=== PATIENT | female | born 1995 ===

== ENCOUNTER 2016-10-19 16:09 | Emergency (ER) | payer OTHER ==
[2016-10-19 16:18] VITALS: BP 116/62; PULSE 93; RESP 20; TEMP 98.7; O2SAT 100
[2016-10-19] MEDS ORDERED: Sodium Chloride 0.9% 1,000 ML IV STA (16:43)
--- NOTE | 2016-10-19 17:04 | ED PDOC ---
HPI: Abdomen Time Seen by Provider: 10/19/16 16:33 Chief Complaint (Nursing): GI Problem Chief Complaint (Provider): Abdominal pain History Per: Patient History/Exam Limitations: no limitations Onset/Duration Of Symptoms: Days (x3 days ) Current Symptoms Are (Timing): Still Present Additional Complaint(s): 21 y/o female presents to the emergency department with a complaint of a left- sided abdominal pain x3 days. Associated with nausea which began yesterday and constipation x1 week. Reports using Fleets Enema without the relief of symptoms. Denies urinary frequency and vaginal discharge. Past Medical History Reviewed: Historical Data, Nursing Documentation, Vital Signs Vital Signs: Last Vital Signs Temp 98.7 F 10/19/16 16:16 Pulse 93 H 10/19/16 16:16 Resp 20 10/19/16 16:16 BP 116/62 10/19/16 16:16 Pulse Ox 100 10/19/16 17:08 - Medical History PMH: Gastritis Denies: Chronic Kidney Disease - Surgical History Surgical History: Cholecystectomy - Family History Family History: States: Unknown Family Hx - Home Medications Home Medications: Ambulatory Orders Medication Instructions Recorded Omeprazole [Omeprazole] 40 mg PO DAILY 09/30/15 Ciprofloxacin [Cipro] 250 mg PO BID #6 tab 01/29/16 Cyclobenzaprine [Cyclobenzaprine 10 mg PO BID #14 tab 01/29/16 HCl] Ibuprofen [Motrin] 400 mg PO Q6 #30 tab 01/29/16 - Allergies Allergies/Adverse Reactions: Allergies Allergy/AdvReac Type Severity Reaction Status Date / Time No Known Allergies Allergy Verified 01/29/16 14:50 Review of Systems ROS Statement: Except As Marked, All Systems Reviewed And Found Negative Gastrointestinal: Positive for: Nausea, Abdominal Pain (Left-sided), Constipation Genitourinary Female: Negative for: Frequency, Vaginal Discharge Physical Exam - Reviewed Nursing Documentation Reviewed: Yes Vital Signs Reviewed: Yes - Physical Exam Appears: Positive for: Non-toxic, No Acute Distress Head Exam: Positive for: ATRAUMATIC, NORMAL INSPECTION, NORMOCEPHALIC Skin: Positive for: Normal Color, Warm, Dry Neck: Positive for: Normal, Supple Cardiovascular/Chest: Positive for: Regular Rate, Rhythm. Negative for: Murmur Respiratory: Positive for: Normal Breath Sounds. Negative for: Accessory Muscle Use, Respiratory Distress Gastrointestinal/Abdominal: Positive for: Soft, Tenderness (Tenderness of the left upper and lower quadrant as well as flank region tenderness noted. Minimal tenderness of the RLQ noted. ). Negative for: Normal Exam Neurologic/Psych: Positive for: Alert, Oriented (x3) - Laboratory Results Result Diagrams: 10/19/16 17:04 10/19/16 17:04 - ECG O2 Sat by Pulse Oximetry: 100 (RA) Pulse Ox Interpretation: Normal Medical Decision Making Medical Decision Making: Time: 16:33 Initial impression: Initial plan: --Abd & pelvis CT --CMP --Lipase --Urine DIP & Urine Preg --CBC w/ diff --Toradol 15 mg IVP --Sodium Chloride 500 mls/hr IV --Urine Culture --Urinalysis --Reevaluation Time: 16:45 --Urine DIP & Preg: Negative --Pending CT for evaluation of kidney stones. Scribe Attestation: Documented by Kourtney Thao, acting as a scribe for Rivka Rodriguez PA-C. Provider Scribe Attestation: All medical record entries made by the Scribe were at my direction and personally dictated by me. I have reviewed the chart and agree that the record accurately reflects my personal performance of the history, physical exam, medical decision making, and the department course for this patient. I have also personally directed, reviewed, and agree with the discharge instructions and disposition. Disposition - Clinical Impression Clinical Impression: Abdominal pain - Patient ED Disposition Is Patient to be Admitted: Transfer of Care - Disposition Disposition: Transfer of Care Disposition Time: 18:53 Condition: FAIR Forms: [employer] (Italian) Patient Signed Over To: Bridgette Flower Handoff Comments: PENDING CT/RE-EVAL
[2016-10-19 17:05] LABS: RBC URINE 3 /hpf (0-3); URINE BACTERIA MOD (<OCC); URINE BILIRUBIN NEGATIVE (NEGATIVE); URINE BLOOD NEGATIVE (NEGATIVE); URINE COLOR YELLOW (YELLOW); URINE GLUCOSE (UA) NEG (Normal); URINE KETONE NEGATIVE (NEGATIVE); URINE LEUKOCYTE ESTERASE NEG Leu/uL (Negative); URINE PROTEIN NEGATIVE (NEGATIVE); URINE UROBILINOGEN 0.2-1.0 mg/dL (0.2-1.0); WBC URINE 1 /hpf (0-5)
[2016-10-19 17:11] LABS: BASO % 0.7 % (0.0-2.0); EOS # 0.1 K/uL (0.0-0.7); EOS % 1.6 % (0.0-4.0); HEMATOCRIT 29.1 % (34.0-47.0); LYMPH # 2.2 K/uL (1.0-4.3); LYMPH % 37.4 % (20.0-40.0); MEAN CORPUSCULAR HEMOGLOBIN 25.5 pg (27.0-31.0); MEAN CORPUSCULAR HGB CONC 32.9 g/dL (33.0-37.0); MEAN PLATELET VOLUME 9.9 fl (7.2-11.7); MONO # 0.4 K/uL (0.0-0.8); NEUT # 3.1 K/uL (1.8-7.0); NEUT % 53.3 % (50.0-75.0); NRBC % 0.1 % (0.0-0.0); RED CELL DISTRIBUTION WIDTH 15.7 % (11.5-14.5); WHITE BLOOD COUNT 5.9 K/uL (4.8-10.8)
[2016-10-19 17:15] LABS: MEAN CELL VOLUME 77.4 fl (81.0-99.0)
[2016-10-19 17:26] LABS: ALB/GLOB RATIO 1.3 (1.0-2.1); ALKALINE PHOSPHATASE 55 U/L (38-126); ALT/SGPT 31 U/L (9-52); AST/SGOT 25 U/L (14-36); BILIRUBIN,TOTAL 0.8 mg/dl (0.2-1.3); BLOOD UREA NITROGEN 11 mg/dl (7-17); CALCIUM 8.8 mg/dL (8.4-10.2); CARBON DIOXIDE 25 mmol/L (22-30); CHLORIDE 106 mmol/L (98-107); GFR AFRICAN-AMERICAN > 60; GLUCOSE,RANDOM 96 mg/dL (65-105); LIPASE 137 U/L (23-300); POTASSIUM 3.4 MMOL/L (3.6-5.0); SODIUM 140 mmol/l (132-148); TOTAL PROTEIN 6.9 G/DL (6.3-8.2)
--- NOTE | 2016-10-19 20:06 | CT ---
EXAM: CT Abdomen and Pelvis Without Intravenous Contrast EXAM DATE/TIME: 10/19/2016 4:46 PM CLINICAL HISTORY: 21 years old, female; Pain; Abdominal pain; Flank; Left lower quadrant (llq); Additional info: R/O kidney stone luq/llq pain TECHNIQUE: Axial computed tomography images of the abdomen and pelvis without intravenous contrast. All CT scans at this facility use one or more dose reduction techniques, viz.: automated exposure control; ma/kV adjustment per patient size (including targeted exams where dose is matched to indication; i.e. head); or iterative reconstruction technique. Coronal and sagittal reformatted images were created and reviewed. COMPARISON: CR - ABD 2 VIEWS (FLAT/UP OR DECUB) 05/03/2015 4:04:07 PM FINDINGS: Lower thorax: Heart size is normal. There is minimal scarring at the lung bases ABDOMEN: Liver: unremarkable Gallbladder and bile ducts: Gallbladder is surgically absent. Common duct is unremarkable. Pancreas: unremarkable Spleen: unremarkable Adrenals: unremarkable Kidneys and ureters: unremarkable Stomach and bowel: Stomach is distended with ingested material. Rotation is normal. There is no obstruction. Ileocecal region is unremarkable. Appendix and terminal ileum are unremarkable.There is moderate stool in the colon. Appendix: See stomach and bowel PELVIS: Bladder: unremarkable Reproductive: Uterus and adnexal structures are unremarkable. ABDOMEN and PELVIS: Intraperitoneal space: There is trace free fluid in the pelvis. There is no free air. Bones/joints: There is L5 spondylolysis. There is minimal spondylolisthesis L5 on S1. There is L5-S1 disc bulging. There is mild L4-L5 disc bulging. Soft tissues: There is a small fat containing umbilical hernia. Vasculature: Vascular structures are unremarkable. Lymph nodes: There is shotty adenopathy. IMPRESSION: No renal or ureteral stones or hydronephrosis; cholecystectomy; possible constipation; no CT findings of appendicitis or diverticulitis; free fluid in the pelvis, physiologic versus recent cyst rupture Additional findings as described above.
--- NOTE | 2016-10-19 20:17 | ED PDOC ---
- Laboratory Results Result Diagrams: 10/19/16 17:04 10/19/16 17:04 - ECG O2 Sat by Pulse Oximetry: 100 (RA) - Progress ED Course And Treament: Case endorsed to technical document writer from Michael THORPE pending CT EXAM: CT Abdomen and Pelvis Without Intravenous Contrast EXAM DATE/TIME: 10/19/2016 4:46 PM CLINICAL HISTORY: 21 years old, female; Pain; Abdominal pain; Flank; Left lower quadrant (llq); Additional info: R/O kidney stone luq/llq pain TECHNIQUE: Axial computed tomography images of the abdomen and pelvis without intravenous contrast. All CT scans at this facility use one or more dose reduction techniques, viz.: automated exposure control; ma/kV adjustment per patient size (including targeted exams where dose is matched to indication; i.e. head); or iterative reconstruction technique. Coronal and sagittal reformatted images were created and reviewed. COMPARISON: CR - ABD 2 VIEWS (FLAT/UP OR DECUB) 05/03/2015 4:04:07 PM FINDINGS: Lower thorax: Heart size is normal. There is minimal scarring at the lung bases ABDOMEN: Liver: unremarkable Gallbladder and bile ducts: Gallbladder is surgically absent. Common duct is unremarkable. Pancreas: unremarkable Spleen: unremarkable Adrenals: unremarkable Kidneys and ureters: unremarkable Stomach and bowel: Stomach is distended with ingested material. Rotation is normal. There is no obstruction. Ileocecal region is unremarkable. Appendix and terminal ileum are unremarkable.There is moderate stool in the colon. Appendix: See stomach and bowel PELVIS: Bladder: unremarkable Reproductive: Uterus and adnexal structures are unremarkable ABDOMEN and PELVIS: Intraperitoneal space: There is trace free fluid in the pelvis. There is no free air. Bones/joints: There is L5 spondylolysis. There is minimal spondylolisthesis L5 on S1. There is L5-S1 disc bulging. There is mild L4-L5 disc bulging. Soft tissues: There is a small fat containing umbilical hernia. Vasculature: Vascular structures are unremarkable. Lymph nodes: There is shotty adenopathy. IMPRESSION: No renal or ureteral stones or hydronephrosis; cholecystectomy; possible constipation; no CT findings of appendicitis or diverticulitis; free fluid in the pelvis, physiologic versus recent cyst rupture Additional findings as described above On re-eval, patient resting comfortably, states pain resolved. Patient educated on findings, discharged with instructions to follow up PMD 2-3 days. Patient aware of anemia. Will follow with PMD Return to ED for worsening/concerning symptoms. Disposition - Clinical Impression Clinical Impression: Abdominal pain, Anemia - POA Present On Arrival: None - Disposition Disposition: Routine/Home Disposition Time: 20:36 Condition: IMPROVED Instructions: Abdominal Pain (ED), Anemia (ED)
== END 2016-10-19 20:55 | disposition home or self-care (01) ==
LOC: H.ER 16:09
DX: R10.9 Unspecified abdominal pain (principal); D64.9 Anemia, unspecified; Z90.49 Acquired absence of other specified parts of digestive tract
CPT/HCPCS: 74176; 80053; 81003; 83690; 85025; 87086; 96361; 96374; 99283; J1885; J7040

== ENCOUNTER 2018-03-15 18:35 | Emergency (ER) | payer OTHER ==
[2018-03-15 19:16] VITALS: RESP 16
[2018-03-15] MEDS ORDERED: Sodium Chloride 0.9% 1,000 ML IV STA (19:51)
[2018-03-15 20:30] LABS: BASO % 0.6 % (0.0-2.0); EOS # 0.1 K/uL (0.0-0.7); EOS % 2.2 % (0.0-4.0); HEMOGLOBIN 10.6 g/dL (12.0-16.0); LYMPH # 2.4 K/uL (1.0-4.3); LYMPH % 45.6 % (20.0-40.0); MEAN CELL VOLUME 80.5 fl (81.0-99.0); MEAN CORPUSCULAR HEMOGLOBIN 26.4 pg (27.0-31.0); MEAN CORPUSCULAR HGB CONC 32.8 g/dL (33.0-37.0); MEAN PLATELET VOLUME 9.3 fl (7.2-11.7); MONO # 0.3 K/uL (0.0-0.8); MONO % 5.8 % (0.0-10.0); NEUT # 2.4 K/uL (1.8-7.0); NEUT % 45.8 % (50.0-75.0); RBC 4.01 Mil/uL (3.80-5.20); RED CELL DISTRIBUTION WIDTH 14.6 % (11.5-14.5); WHITE BLOOD COUNT 5.3 K/uL (4.8-10.8)
[2018-03-15 20:34] LABS: SQUAMOUS EPITHIAL < 1 /hpf (0-5); URINE BACTERIA RARE (<OCC); URINE BILIRUBIN NEGATIVE (NEGATIVE); URINE BLOOD MODERATE (NEGATIVE); URINE CLARITY CLEAR (Clear); URINE COLOR AMBER (YELLOW); URINE GLUCOSE (UA) NEG (NEGATIVE); URINE LEUKOCYTE ESTERASE NEG Leu/uL (Negative); URINE PROTEIN NEGATIVE (NEGATIVE)
[2018-03-15 20:37] LABS: URINE UROBILINOGEN 0.2 mg/dL (0.2-1.0)
[2018-03-15 20:38] LABS: ALB/GLOB RATIO 1.2 (1.0-2.1); ALBUMIN 4.3 g/dL (3.5-5.0); ALT/SGPT 58 U/L (9-52); AST/SGOT 47 U/L (14-36); BLOOD UREA NITROGEN 16 mg/dl (7-17); CALCIUM 9.1 mg/dL (8.4-10.2); GFR NON-AFRICAN AMERICAN > 60; LIPASE 1816 U/L (23-300)
--- NOTE | 2018-03-15 20:41 | ED PDOC ---
HPI: Abdomen Time Seen by Provider: 03/15/18 19:15 Chief Complaint (Nursing): Abdominal Pain Chief Complaint (Provider): Abdominal Pain History Per: Patient History/Exam Limitations: no limitations Onset/Duration Of Symptoms: Days (x2) Current Symptoms Are (Timing): Still Present Context: Travel (returned from [place] on 03/13/2018) Additional Complaint(s): Patient is a 23 y/o female with a PMHx of gastritis who presents to the ED for evaluation of epigastric and left flank abdominal pain, onset 03/13/2018. Patient admits to nausea. Patient denies fever, vomiting, diarrhea, and urinary symptoms. Of note, patient states she was treated in [place] on 03/07/2018 for a stomach virus. PCP: Dr. Monte Past Medical History Reviewed: Historical Data, Nursing Documentation, Vital Signs Vital Signs: Last Vital Signs Temp 98.1 F 03/15/18 19:13 Pulse 85 03/15/18 19:13 Resp 16 03/15/18 19:13 BP 112/70 03/15/18 19:13 Pulse Ox 100 03/15/18 19:13 - Medical History PMH: Gastritis Denies: Chronic Kidney Disease - Surgical History Surgical History: Cholecystectomy - Family History Family History: States: Unknown Family Hx - Social History Current smoker - smoking cessation education provided: No Ex-Smoker (has not smoked in the last 12 months): No Alcohol: None Drugs: Denies - Home Medications Home Medications: Ambulatory Orders Medication Instructions Recorded Omeprazole 40 mg PO DAILY 09/30/15 Ciprofloxacin [Cipro] 250 mg PO BID #6 tab 01/29/16 Cyclobenzaprine [Cyclobenzaprine 10 mg PO BID #14 tab 01/29/16 HCl] Ibuprofen [Motrin] 400 mg PO Q6 #30 tab 01/29/16 Ciprofloxacin HCl [Cipro] 500 mg PO BID #20 tab 03/16/18 Famotidine [Pepcid] 20 mg PO DAILY PRN #10 tab 03/16/18 - Allergies Allergies/Adverse Reactions: Allergies Allergy/AdvReac Type Severity Reaction Status Date / Time No Known Allergies Allergy Verified 03/15/18 19:13 Review of Systems ROS Statement: Except As Marked, All Systems Reviewed And Found Negative Constitutional: Negative for: Fever Gastrointestinal: Positive for: Nausea, Abdominal Pain (epigastric and left flank). Negative for: Vomiting, Diarrhea Genitourinary Female: Negative for: Dysuria, Hematuria Physical Exam - Reviewed Nursing Documentation Reviewed: Yes Vital Signs Reviewed: Yes - Physical Exam Appears: Positive for: No Acute Distress Head Exam: Positive for: ATRAUMATIC, NORMAL INSPECTION, NORMOCEPHALIC Skin: Positive for: Normal Color, Warm, DRY Eye Exam: Positive for: EOMI, Normal appearance, PERRL ENT: Positive for: Normal ENT Inspection Neck: Positive for: Normal Cardiovascular/Chest: Positive for: Regular Rate, Rhythm. Negative for: Murmur Respiratory: Positive for: Normal Breath Sounds Gastrointestinal/Abdominal: Positive for: Normal Exam, Soft, Tenderness (LUQ and mid-epigastric) Extremity: Positive for: Normal ROM (Upper/lower) Neurologic/Psych: Positive for: Alert, Oriented - Laboratory Results Result Diagrams: 03/15/18 20:05 03/15/18 20:05 Lab Results: Total Bilirubin 0.3 mg/dl (0.2-1.3) 03/15/18 20:05 AST 47 U/L (14-36) H 03/15/18 20:05 ALT 58 U/L (9-52) H D 03/15/18 20:05 Alkaline Phosphatase 81 U/L (38-126) 03/15/18 20:05 Total Protein 7.9 G/DL (6.3-8.2) 03/15/18 20:05 Albumin 4.3 g/dL (3.5-5.0) 03/15/18 20:05 Globulin 3.6 gm/dL (2.2-3.9) 03/15/18 20:05 Albumin/Globulin Ratio 1.2 (1.0-2.1) 03/15/18 20:05 Lipase 1816 U/L (23-300) H 03/15/18 20:05 Urine Color [place] (YELLOW) 03/15/18 20:05 Urine Clarity Clear (Clear) 03/15/18 20:05 Urine pH 6.0 (5.0-8.0) 03/15/18 20:05 Ur Specific [place] 1.017 (1.003-1.030) 03/15/18 20:05 Urine Protein Negative mg/dL (NEGATIVE) 03/15/18 20:05 Urine Glucose (UA) Neg mg/dL (NEGATIVE) 03/15/18 20:05 Urine Ketones Negative mg/dL (NEGATIVE) 03/15/18 20:05 Urine Blood Moderate (NEGATIVE) 03/15/18 20:05 Urine Nitrate Positive (NEGATIVE) H 03/15/18 20:05 Urine Bilirubin Negative (NEGATIVE) 03/15/18 20:05 Urine Urobilinogen 0.2 mg/dL (0.2-1.0) 03/15/18 20:05 Ur Leukocyte Esterase Neg [place]/uL (Negative) 03/15/18 20:05 Urine RBC (Auto) 97 /hpf (0-3) H 03/15/18 20:05 Urine Microscopic WBC 6 /hpf (0-5) H 03/15/18 20:05 Ur Squamous Epith Cells < 1 /hpf (0-5) 03/15/18 20:05 Urine Bacteria Rare (<OCC) 03/15/18 20:05 - ECG O2 Sat by Pulse Oximetry: 100 (RA) Pulse Ox Interpretation: Normal Medical Decision Making Medical Decision Making: Time: 1950 abdominal pain rule out infection, inflammation, uti Plan: CMP Lipase CBC (with differential) IV Fluids Pepcid 20 mg IVP Zofran Inj 4 mg IV Urine C&S UA Time: 2151 [address]. Will do CT Abd scan. 01:34 CT COMPARISON: 10/19/2016. TECHNIQUE: Multiple axial and coronal CT images were obtained through the abdomen and pelvis after administration of intravenous contrast material. COMMENTS: The liver is of uniform attenuation without mass or defect. There is no intra or extrahepatic biliary ductal dilatation. The spleen is normal. The gallbladder is surgically absent. The pancreas is of normal contour and attenuation characteristics. There is no evidence of adrenal mass. Both kidneys demonstrate prompt and equal nephrograms. The kidneys are normal in size, shape and configuration. There is no evidence of renal or ureteral mass. No renal or ureteral calculi are identified. There is no hydroureter or hydronephrosis. No evidence for appendicitis. There is no bowel wall thickening. No evidence for small or large bowel obstruction. There is no evidence of abdominal ascites or lymphadenopathy. There is no evidence of intrinsic or extrinsic bladder mass. There is no pelvic ascites or lymphadenopathy. Diffuse thickening of the bladder. Images of the lung bases show no evidence of pleural or parenchymal mass. There are no pleural effusions. The bony structures are free of lytic or blastic lesions. IMPRESSION: Diffuse thickening of the bladder. Cystitis. Unremarkable pancreas. 01:50 Patient will be treated for elevated LFTs, anemia and a UTI. Given first dose of Cipro in the ED. everythign explained to patient. she feels better, tolerated po, pain resolved. Will be discharged home with prescriptions for Cipro and Pepcid. Return precautions provided. Follow up with PMD. Scribe Attestation: Documented by Haseeb Parker, acting as a scribe for provider Nayan Silveira MD. All medical record entries made by the Scribe were at my direction and personally dictated by me. I have reviewed the chart and agree that the record accurately reflects my personal performance of the history, physical exam, medical decision making, and the department course for this patient. I have also personally directed, reviewed, and agree with the discharge instructions and disposition. Disposition - Clinical Impression Clinical Impression: Abdominal pain in female, Gastritis, UTI (urinary tract infection), Elevated LFTs - Patient ED Disposition Is Patient to be Admitted: No Counseled Patient/Family Regarding: Studies Performed, Diagnosis, Need For Followup - Disposition Disposition: Routine/Home Disposition Time: 01:50 Condition: IMPROVED Additional Instructions: follow up with your primary doctor Dr Londono in 1-2 days return to the ED with any worsening or concerning symptoms Prescriptions: Ciprofloxacin HCl [Cipro] 500 mg PO BID #20 tab Famotidine [Pepcid] 20 mg PO DAILY PRN #10 tab PRN Reason: Heartburn Instructions: Urinary Tract Infection, Adult (DC), Stomach Ache and Stomach Upset Forms: [email or web address] (Ukrainian)
[2018-03-15] MEDS ORDERED: Iohexol 240 (50 ml) PO ONE (21:51)
[2018-03-15] MEDS ORDERED: Iohexol 240 (50 ml) ONE (21:57)
[2018-03-15] MEDS ORDERED: Sodium Chloride 0.9% 50 ML IV ONE (23:24)
[2018-03-15] MEDS ORDERED: Iohexol 300 100 ML IJ ONE (23:24)
[2018-03-16 02:25] VITALS: BP 119/69; PULSE 77; TEMP 98.2
[2018-03-16 04:40] VITALS: O2SAT 100
--- NOTE | 2018-03-16 11:24 | CT ---
Date of service: 03/15/2018 PROCEDURE: CT Abdomen and Pelvis with contrast HISTORY: abdominal pain elevated lipase COMPARISON: 10/19/2016and 09/30/2015 CT abdomen and pelvic exams TECHNIQUE: Contrast dose: 90 mL Omnipaque 300 Radiation dose: Total exam DLP = 549.72 mGy-cm. This CT exam was performed using one or more of the following dose reduction techniques: Automated exposure control, adjustment of the mA and/or kV according to patient size, and/or use of iterative reconstruction technique. FINDINGS: LOWER THORAX: Unremarkable. LIVER: Bordering the falciform ligament the anterior subcapsular appearing 2.5 x 1.3 cm hypodensity series 2, image 25 is stable in appearance dating back to 2015. Although the precise etiology of it is unclear its stability supports benign etiology. Its Hounsfield units are greater than that of a simple cyst. Greater focal fatty deposition is 1 consideration. Elsewhere generalized mild hepatic infiltration is believed also present. No intrahepatic bile duct dilatation noted. GALLBLADDER AND BILE DUCTS: Status post cholecystectomy. No extrahepatic stones noted. No suspect the bile duct dilatation noted. PANCREAS: Remarkable in appearance. No gross lesion or ductal dilatation. SPLEEN: Unremarkable. ADRENALS: Unremarkable. No mass. KIDNEYS AND URETERS: Unremarkable. No hydronephrosis. No solid mass. VASCULATURE: Unremarkable. No aortic aneurysm. No aortic atherosclerotic calcification or mural plaque present. BOWEL: Moderate stool retention. Rectosigmoid redundancy noted.. No obstruction. No gross mural thickening. APPENDIX: Normal appendix. PERITONEUM: Unremarkable. No free fluid. No free air. LYMPH NODES: Unremarkable. No enlarged lymph nodes. BLADDER: The bladder wall appears minimally and diffusely thickened. Of note is that this minimally diffusely thickened bladder wall appearance is a stable finding in this patient dating back to 2015. Correlate clinically REPRODUCTIVE: Unremarkable. BONES: Incidentally noted is bilateral L5 spondylolysis with a grade 1 spondylolisthesis OTHER FINDINGS: None. IMPRESSION: The circumscribed singular subcapsular appearing hypodense liver lesion is stable in appearance since 2016 supporting benign etiology. Some considerations are referenced above. A background of mild diffuse hepatic steatosis is also noted. Status post cholecystectomy. No interval dilated ducts seen. Unremarkable appearing pancreas in this patient with abdominal pain and elevated lipase. Clinical correlation and follow-up recommended. The bladder wall appears minimally and diffusely thickened. Of note is that this minimally diffusely thickened bladder wall appearance is a stable finding in this patient dating back to 2016. Correlate clinically The preliminary report offered by [facility] did not mention the liver findings as referenced above hence in this regard the current final report is discordant with the preliminary report. However this liver finding is stable since 2016 compatible with benign etiology.
== END 2018-03-16 02:20 | disposition home or self-care (01) ==
LOC: H.ER 18:35
DX: R10.13 Epigastric pain (principal); K29.70 Gastritis, unspecified, without bleeding; N39.0 Urinary tract infection, site not specified; R94.5 Abnormal results of liver function studies; D64.9 Anemia, unspecified
CPT/HCPCS: 74177; 80053; 81003; 81025; 83690; 85025; 87086; 96361; 96374; 96375; 99284; J2405; J7030; Q9966; Q9967

== ENCOUNTER 2018-04-24 12:39 | Emergency (ER) | payer OTHER ==
[2018-04-24] MEDS ORDERED: Tdap Vaccine 0.5 ml Vial (10-64 yrs) IM ONE ×2 (13:30→13:39)
[2018-04-24] MEDS ORDERED: Povidone Iodine Oint 10% Foilpak UD ONE (13:33)
--- NOTE | 2018-04-24 13:48 | ED PDOC ---
Syncope/Near Syncope/Dizziness Time Seen by Provider: 04/24/18 12:57 Chief Complaint (Nursing): Syncope Chief Complaint (Provider): syncope with facial trauma History Per: Patient History/Exam Limitations: no limitations Additional Complaint(s): 23 y/o F with hx of tachycardia of unclear etiology (baseline HR low 100s to 120s) who presents after syncopal episode this morning with subsequent facial trauma. pt states that she woke up at about 4:30am and had a BM. Afterwards, she felt lightheaded, warm and weak. She has a hx of feeling this way after having BMs, which usually subsides after smelling alcohol. She called her father to bring her alcohol but subsequently had + LOC with subsequent nasal trauma, hitting her face on toilet as blood was noted on toilet. Pt denies palpitations or chest pain prior to syncope. Currently c/o facial pain and [place] that goes to the back of her head although only hit face as well as dizziness with turning head. Has never had syncope previously. Currently c/o shoulder and neck pain but denies N/V or visual changes. She is not up to date on tetanus vaccine and has not taken anything for pain. She has a long hx of tachycardia and had thyroid evaluated 5 yrs ago that was negative. Past Medical History Reviewed: Historical Data, Nursing Documentation, Vital Signs Vital Signs: Last Vital Signs Temp 97 F L 04/24/18 12:51 Pulse 127 H 04/24/18 12:51 Resp 20 04/24/18 12:51 BP 113/72 04/24/18 12:51 Pulse Ox 99 04/24/18 12:51 - Medical History PMH: Gastritis Denies: Chronic Kidney Disease - Surgical History Surgical History: Cholecystectomy - Family History Family History: States: Unknown Family Hx - Home Medications Home Medications: Ambulatory Orders Medication Instructions Recorded Omeprazole 40 mg PO DAILY 09/30/15 Ciprofloxacin [Cipro] 250 mg PO BID #6 tab 01/29/16 Cyclobenzaprine [Cyclobenzaprine 10 mg PO BID #14 tab 01/29/16 HCl] Ibuprofen [Motrin] 400 mg PO Q6 #30 tab 01/29/16 Ciprofloxacin HCl [Cipro] 500 mg PO BID #20 tab 03/16/18 Famotidine [Pepcid] 20 mg PO DAILY PRN #10 tab 03/16/18 Amoxicillin/Clavulanate [Augmentin 1 tab PO BID 5 Days tab 04/24/18 875 MG-125 MG] Bacitracin OINT 1 applic TP BID PRN #1 tube 04/24/18 Cyclobenzaprine [Cyclobenzaprine 10 mg PO Q8 PRN 5 Days tab 04/24/18 HCl] Ibuprofen [Motrin Tab] 600 mg PO Q6 PRN 7 Days tab 04/24/18 - Allergies Allergies/Adverse Reactions: Allergies Allergy/AdvReac Type Severity Reaction Status Date / Time No Known Allergies Allergy Verified 04/24/18 12:51 Review of Systems Constitutional: Negative for: Fever Eyes: Negative for: Vision Change ENT: Positive for: Nose Pain. Negative for: Ear Pain Cardiovascular: Negative for: Chest Pain, Palpitations Respiratory: Negative for: Shortness of Breath Gastrointestinal: Negative for: Nausea, Vomiting Musculoskeletal: Positive for: Neck Pain, Shoulder Pain Neurological: Positive for: Weakness, Dizziness. Negative for: Change in Speech Physical Exam - Reviewed Nursing Documentation Reviewed: Yes Vital Signs Reviewed: Yes - Physical Exam Appears: Positive for: Uncomfortable Head Exam: Positive for: NORMAL INSPECTION. Negative for: ATRAUMATIC (+ mild forehead and nasal bridge ecchymosis with about 1cm superficial laceration on nasal bridge after cleansed. ) ENT: Positive for: TM Is/Are (normal b/l), Sinus Pain/Drainage (no blood noted in nasal cavity), Other. Negative for: Pharyngeal Erythema Neck: Positive for: Decreased ROM (with lateral rotation to left and right, normal flexion and extension, no cervical spinal tenderness. ) Cardiovascular/Chest: Positive for: Regular Rate, Rhythm Respiratory: Positive for: Normal Breath Sounds Extremity: Positive for: Normal ROM (flexion and extension of neck) - Laboratory Results Result Diagrams: 04/24/18 13:45 04/24/18 13:45 - ECG O2 Sat by Pulse Oximetry: 99 Medical Decision Making Medical Decision Making: CBC, BMP, TSH Maxillofacial CT w/o contrast Head CT w/o contrast Urine preg Ibuprofen 600mg PO x 1 EKG Tele EKG: sinus, HR 108, no ischemic change or arrhythmia. Nasal bridge laceration with good skin apposition after steri-strips placed. Cleansed with betadine prior to placement of steri-strips. Maxillofacial CT: NASAL BONES: Bilateral nasal bone fractures, acute. Adjacent soft tissue swelling noted. ORBITS: Unremarkable. PARANASAL SINUSES/ MASTOIDS: Clear. MAXILLA: Unremarkable. MANDIBLE/ TEMPOROMANDIBULAR JOINTS: Unremarkable. SKULL BASE: Unremarkable. TEMPORAL BONES: Middle ears and mastoid grossly unremarkable. OTHER FINDINGS: None. IMPRESSION: Acute bilateral nasal bone fractures. Adjacent soft tissue swelling noted. Head CT: IMPRESSION: No acute intracranial abnormalities. No significant findings to account for the clinical presentation. 16:07: no arrhythmia noted on telemetry. Pt informed of nasal bone fracture and recommended to f/u with plastic surgeon for consultation. Pt advised to sit down immediately if feels similar symptoms of lightheadedness/warmth and to place legs between legs until symptoms improve as she likely has high vagal tone leading to pre-syncopal and syncopal episode. Disposition - Clinical Impression Clinical Impression: Nasal bone fracture, Vasovagal syncope - Patient ED Disposition Is Patient to be Admitted: No Counseled Patient/Family Regarding: Studies Performed, Diagnosis, Need For Followup - Disposition Referrals: Anay Londono [Medical Doctor] - Duyen Peña MD [Medical Doctor] - Disposition: Routine/Home Disposition Time: 16:20 Condition: STABLE Additional Instructions: Avoid blowing your nose and sneeze with your mouth open to decrease the risk of nose bleed given fracture. REturn to ER if you develop worsening dizziness or vomiting. Take Tylenol or Ibuprofen for the pain. Steri-strip will fall off on their own within 5 - 7 days. Keep nose dry for the next 24hrs and then you can wash gently with soap and water daily. You can use Bacitracin/Neosporin to prevent infection. If you feel warm/dizzy again, sit down LAURA and put head between legs until you feel better. F/u with analysis manager for further evaluation of possible vasovagal syncope. Prescriptions: Amoxicillin/Clavulanate [Augmentin 875 MG-125 MG] 1 tab PO BID 5 Days tab Bacitracin OINT 1 applic TP BID PRN #1 tube PRN Reason: Other Cyclobenzaprine [Cyclobenzaprine HCl] 10 mg PO Q8 PRN 5 Days tab PRN Reason: Muscle Spasm Ibuprofen [Motrin Tab] 600 mg PO Q6 PRN 7 Days tab PRN Reason: Pain, Moderate (4-7) Instructions: Syncope (Fainting) (DC), Vasovagal Response (DC), Skull and Facial Fractures (DC) Forms: [facility] (Georgian), [facility] ED School/Work Excuse Print Language: UKRAINIAN
[2018-04-24 14:21] LABS: BASO % 0.7 % (0.0-2.0); EOS # 0.1 K/uL (0.0-0.7); EOS % 1.7 % (0.0-4.0); HEMOGLOBIN 12.4 g/dL (12.0-16.0); LYMPH # 1.7 K/uL (1.0-4.3); LYMPH % 27.5 % (20.0-40.0); MEAN CELL VOLUME 80.8 fl (81.0-99.0); MEAN CORPUSCULAR HEMOGLOBIN 27.1 pg (27.0-31.0); MEAN CORPUSCULAR HGB CONC 33.5 g/dL (33.0-37.0); MEAN PLATELET VOLUME 10.3 fl (7.2-11.7); MONO # 0.4 K/uL (0.0-0.8); MONO % 6.1 % (0.0-10.0); RBC 4.59 Mil/uL (3.80-5.20); RED CELL DISTRIBUTION WIDTH 16.3 % (11.5-14.5); WHITE BLOOD COUNT 6.3 K/uL (4.8-10.8)
[2018-04-24 14:30] LABS: BLOOD UREA NITROGEN 10 mg/dl (7-17); CALCIUM 10.1 mg/dL (8.4-10.2); GFR NON-AFRICAN AMERICAN > 60
--- NOTE | 2018-04-24 14:46 | CT ---
Date of service: 04/24/2018 PROCEDURE: CT MAXILLOFACIAL BONES WITHOUT CONTRAST HISTORY: syncope with facial trauma COMPARISON: None available. TECHNIQUE: Contiguous axial CT images of the maxillofacial bones were obtained. Coronal and sagittal reformats were generated. Radiation dose: Total exam DLP = 1758.05 mGy-cm. This CT exam was performed using one or more of the following dose reduction techniques: Automated exposure control, adjustment of the mA and/or kV according to patient size, and/or use of iterative reconstruction technique. FINDINGS: NASAL BONES: Bilateral nasal bone fractures, acute. Adjacent soft tissue swelling noted. ORBITS: Unremarkable. PARANASAL SINUSES/ MASTOIDS: Clear. MAXILLA: Unremarkable. MANDIBLE/ TEMPOROMANDIBULAR JOINTS: Unremarkable. SKULL BASE: Unremarkable. TEMPORAL BONES: Middle ears and mastoid grossly unremarkable. OTHER FINDINGS: None. IMPRESSION: Acute bilateral nasal bone fractures. Adjacent soft tissue swelling noted.
--- NOTE | 2018-04-24 14:49 | CT ---
Date of service: 04/24/2018 PROCEDURE: CT HEAD WITHOUT CONTRAST. HISTORY: s/p syncope with [place] COMPARISON: None available. TECHNIQUE: Axial computed tomography images were obtained through the head/brain without intravenous contrast. Supplemental Coronal and Sagittal projections created and reviewed. Radiation dose: Total exam DLP = 1758.05 mGy-cm. This CT exam was performed using one or more of the following dose reduction techniques: Automated exposure control, adjustment of the mA and/or kV according to patient size, and/or use of iterative reconstruction technique. FINDINGS: HEMORRHAGE: No intracranial hemorrhage. BRAIN: No mass effect or edema. No atrophy or chronic microvascular ischemic changes. VENTRICLES: Unremarkable. No hydrocephalus. CALVARIUM: Unremarkable. PARANASAL SINUSES: Unremarkable as visualized. No significant inflammatory changes. MASTOID AIR CELLS: Unremarkable as visualized. No inflammatory changes. OTHER FINDINGS: None. IMPRESSION: No acute intracranial abnormalities. No significant findings to account for the clinical presentation.
[2018-04-24 17:07] VITALS: BP 116/75; PULSE 94; RESP 18; TEMP 98.2; O2SAT 100
--- NOTE | 2018-04-24 20:33 | CARD ---
APPROVED REPORT Date of service: 04/24/2018 EKG Measurement Heart [id number] <Conclusion> Sinus tachycardia Otherwise normal ECG
== END 2018-04-24 17:05 | disposition home or self-care (01) ==
LOC: H.ER 12:39
DX: S02.2XXA Fracture of nasal bones, initial encounter for closed fracture (principal); R55 Syncope and collapse; Z23 Encounter for immunization